=== PATIENT | female | born 1940 | race Caucasian/White ===

== ENCOUNTER 2021-09-13 10:15 | Inpatient (IN) | payer MEDICARE, OTHER ==
[2021-09-13] MEDS ORDERED: Fentanyl 100 MCG/2 ML VIAL ONE (10:49)
[2021-09-13] MEDS ORDERED: Lidocaine 1% (PF) 30 ML VIAL ONE (11:12)
[2021-09-13] MEDS ORDERED: Morphine 4 MG/ML VIAL ONE ×3 (11:12→13:57)
[2021-09-13] MEDS ORDERED: Lidocaine 1% w/Epinephrine 1:100K 20 ML VIAL ONE ×2 (11:25→17:24)
[2021-09-13] MEDS ORDERED: Midazolam HCl 2 mg/2 ml Vial ONE (12:14)
[2021-09-13 13:37] LABS: Hemoglobin 13.8 g/dL (12.0-16.0); Mean Corpuscular HGB CONC 32.4 g/dL (32.0-36.0); Mean Corpuscular Hemoglobin 30.5 pg (27.0-31.0); Mean Platelet Volume 7.2 fL (7.4-10.4); Platelet Count 285 thou/uL (130-400); Red Blood Cell (RBC) Count 4.54 mill/uL (4.20-5.40); White Blood Cell (WBC) Count 20.1 thou/uL (4.8-10.8)
[2021-09-13 13:55] LABS: Band 11 % (5-11); Lymphocytes 3 % (21-51); MDiff Complete? YES; Monocytes 6 % (0-10); Neutrophil 80 % (42-75); Platelet Morphology Comment Appears Adequate; RBC Morphology Normal
[2021-09-13 13:59] LABS: ALT (SGPT) 11 U/L (8-55); AST (SGOT) 17 U/L (5-34); Albumin 4.1 g/dL (3.4-4.8); Alkaline Phosphatase 81 U/L (40-110); Anion Gap 16 mmol/L (10-20); BUN (Urea Nitrogen) 12 mg/dL (9.8-20.1); Bilirubin, Total 0.3 mg/dL (0.2-1.2); Calc. Creatinine Clearance 0 mL/min (70-130); Calcium 9.5 mg/dL (7.8-10.44); Carbon Dioxide 22 mmol/L (23-31); Chloride 103 mmol/L (98-107); Globulin 2.7 g/dL (2.4-3.5); Glucose 175 mg/dL (83-110); Potassium 3.7 mmol/L (3.5-5.1); Protein, Total 6.8 g/dL (5.8-8.1); Sodium 137 mmol/L (136-145)
[2021-09-13] MEDS ORDERED: Dextrose 5% in Water 1,000 ML IV PRN (14:34)
[2021-09-13] MEDS ORDERED: Ondansetron PF 4 MG/2 ML Vial IVP PRN (14:34)
[2021-09-13] MEDS ORDERED: Morphine 4 MG/ML VIAL SLOW IVP PRN (14:34)
[2021-09-13] MEDS ORDERED: hydrALAZINE 20 MG/ML VIAL SLOW IVP PRN (14:34)
[2021-09-13] MEDS ORDERED: Dextrose 50% Abboject 50 ML SYRINGE SLOW IVP PRN (14:34)
[2021-09-13] MEDS ORDERED: traMADol HCl 50 MG TAB PO PRN ×2 (14:37)
[2021-09-13] MEDS ORDERED: Sodium Chloride 0.9% 1,000 ML IV SCH (14:45)
[2021-09-13] MEDS ORDERED: PROPOFOL 20 ML ONE (15:24)
[2021-09-13] MEDS ORDERED: ceFAZolin Sodium/D5W 2 GM in Premix Bag 1 BAG IVPB SCH (15:30)
[2021-09-13 15:36] LABS: SARS-CoV-2 NAA Rapid Test Not Detected (NotDetected)
[2021-09-13 19:34] VITALS: BMI 24.8
[2021-09-13] MEDS: Acetaminophen 500 MG TAB PO SCH ×3 (20:26→23:22)
[2021-09-13] MEDS: Famotidine 20 MG TAB PO SCH (20:26)
[2021-09-13] MEDS: Senokot S 8.6-50 MG TAB PO SCH (20:26)
[2021-09-13] MEDS: Ibuprofen 200 MG TAB PO SCH (20:26)
[2021-09-13] MEDS: Cyclobenzaprine 10 MG TAB PO PRN (22:57)
[2021-09-14] MEDS: Acetaminophen 500 MG TAB PO SCH ×4 (02:47→19:46)
[2021-09-14] MEDS: Ibuprofen 200 MG TAB PO SCH ×3 (05:03→19:46)
[2021-09-14 07:20] LABS: Anion Gap 13 mmol/L (10-20); BUN (Urea Nitrogen) 10 mg/dL (9.8-20.1); Calc. Creatinine Clearance 76 mL/min (70-130); Calcium 8.7 mg/dL (7.8-10.44); Carbon Dioxide 22 mmol/L (23-31); Chloride 102 mmol/L (98-107); Glucose 121 mg/dL (83-110); Magnesium 1.8 mg/dL (1.6-2.6); Phosphorus 2.8 mg/dL (2.3-4.7); Potassium 3.7 mmol/L (3.5-5.1); Sodium 133 mmol/L (136-145)
[2021-09-14 07:25] LABS: Hemoglobin 11.6 g/dL (12.0-16.0); Mean Corpuscular HGB CONC 33.4 g/dL (32.0-36.0); Mean Corpuscular Hemoglobin 30.9 pg (27.0-31.0); Mean Corpuscular Volume 92.7 fL (78.0-98.0); Mean Platelet Volume 7.5 fL (7.4-10.4); Platelet Count 255 thou/uL (130-400); RBC Distribution Width 11.9 % (11.5-14.5); Red Blood Cell (RBC) Count 3.75 mill/uL (4.20-5.40); White Blood Cell (WBC) Count 14.2 thou/uL (4.8-10.8)
[2021-09-14 08:19] LABS: Band 5 % (5-11); Eosinophils 1 % (0-10); Lymphocytes 12 % (21-51); MDiff Complete? YES; Monocytes 12 % (0-10); Neutrophil 69 % (42-75); Platelet Morphology Comment Appears Adequate; Reactive Lymphocytes 1 % (0-10)
[2021-09-14] MEDS ORDERED: traMADol HCl 50 MG TAB PO PRN (08:29)
[2021-09-14] MEDS ORDERED: Potassium Phosphate 30 MMOL in Sodium Chloride 0.9% 250 ML 250 ML IVPB SCH (09:00)
[2021-09-14] MEDS ORDERED: Magnesium 2 GM/50 ML 2 GM in Premix Bag 1 BAG IVPB SCH (09:00)
[2021-09-14] MEDS: Senokot S 8.6-50 MG TAB PO SCH ×2 (10:27→19:46)
[2021-09-14] MEDS: Famotidine 20 MG TAB PO SCH ×2 (10:27→19:47)
[2021-09-14] MEDS: Polyethylene Glycol 3350 17 GM Packet PO SCH (10:27)
[2021-09-14] MEDS ORDERED: ceFAZolin 2 GM/DEX 5% 100 ML BAG ONE (11:25)
[2021-09-14] MEDS ORDERED: Midazolam HCl 2 mg/2 ml Vial ONE (11:37)
[2021-09-14] MEDS ORDERED: Fentanyl 100 MCG/2 ML VIAL ONE ×4 (11:39→14:18)
[2021-09-14] MEDS: traMADol HCl 50 MG TAB PO SCH ×3 (11:46→22:59)
[2021-09-14] MEDS ORDERED: Bupivacaine HCl 0.5%/Epinephrine 1:200,000/PF 30 ml Vial ONE (11:50)
[2021-09-14] MEDS ORDERED: Lidocaine 1% PF 5 ML VIAL ONE (12:07)
[2021-09-14] MEDS ORDERED: Ondansetron PF 4 MG/2 ML Vial ONE (12:07)
[2021-09-14] MEDS ORDERED: PROPOFOL 200 MG/20 ML VIAL ONE (12:07)
[2021-09-14] MEDS ORDERED: Dexamethasone 20 MG/5 ML VIAL ONE (12:07)
[2021-09-14] MEDS ORDERED: Promethazine HCl 25 MG/ML VIAL IM PRN (13:34)
[2021-09-14] MEDS ORDERED: HYDROmorphone 2 MG/ML VIAL SLOW IVP PRN (13:34)
[2021-09-14] MEDS ORDERED: Ondansetron HCl/PF 4 MG/2 ML Vial IVP PRN (13:34)
[2021-09-14] MEDS ORDERED: Promethazine HCl 25 MG/ML VIAL IVPB PRN (13:34)
[2021-09-14] MEDS ORDERED: PROPOFOL 20 ML ONE (13:37)
[2021-09-14] MEDS: CEFAZOLIN 2 GM in Sodium Chloride 0.9% 100 ML IVPB SCH (19:46)
[2021-09-14] MEDS: Cyclobenzaprine 10 MG TAB PO PRN (19:46)
[2021-09-14] MEDS ORDERED: Haloperidol Lactate 5 MG/ML VIAL IM SCH (22:15)
[2021-09-15] MEDS: Acetaminophen 500 MG TAB PO SCH ×4 (02:58→20:33)
[2021-09-15] MEDS: CEFAZOLIN 2 GM in Sodium Chloride 0.9% 100 ML IVPB SCH (03:00)
[2021-09-15] MEDS: traMADol HCl 50 MG TAB PO SCH ×3 (06:06→18:41)
[2021-09-15] MEDS: Ibuprofen 200 MG TAB PO SCH ×3 (06:06→23:28)
[2021-09-15] MEDS ORDERED: Magnesium 2 GM/50 ML 2 GM in Premix Bag 1 BAG IVPB SCH (08:00)
[2021-09-15] MEDS ORDERED: PHOS-NAK 1 PKT PACK PO SCH (08:00)
[2021-09-15] MEDS: Famotidine 20 MG TAB PO SCH ×2 (09:54→20:34)
[2021-09-15] MEDS: Polyethylene Glycol 3350 17 GM Packet PO SCH (09:54)
[2021-09-15] MEDS: Lisinopril 20 MG TAB PO SCH (09:54)
[2021-09-15] MEDS: Aspirin 81 mg Enteric Coated Tablet PO SCH ×2 (09:54→20:34)
[2021-09-15] MEDS: Senokot S 8.6-50 MG TAB PO SCH ×2 (10:09→21:42)
[2021-09-16] MEDS: traMADol HCl 50 MG TAB PO SCH ×4 (03:16→17:00)
[2021-09-16] MEDS: Acetaminophen 500 MG TAB PO SCH ×4 (03:16→20:43)
[2021-09-16 04:44] LABS: #Basophils 0.1 thou/uL (0.0-0.2); #Eosinphils 0.4 thou/uL (0.0-0.7); #Lymphocytes 1.7 thou/uL (1.20-3.40); #Neutrophils 11.7 thou/uL (1.40-6.50); %Basophils 0.6 % (0.0-1.0); %Eosinophils 2.3 % (0.0-10.0); %Lymphocytes 10.9 % (21.0-51.0); %Monocytes 12.4 % (0.0-10.0); %Neutrophils 73.8 % (42.0-75.0); Mean Corpuscular HGB CONC 33.8 g/dL (32.0-36.0); Mean Corpuscular Volume 94.7 fL (78.0-98.0); Mean Platelet Volume 7.3 fL (7.4-10.4); Platelet Count 249 thou/uL (130-400); RBC Distribution Width 12.2 % (11.5-14.5); Red Blood Cell (RBC) Count 3.43 mill/uL (4.20-5.40); White Blood Cell (WBC) Count 15.8 thou/uL (4.8-10.8)
[2021-09-16 05:26] LABS: Anion Gap 13 mmol/L (10-20); BUN (Urea Nitrogen) 15 mg/dL (9.8-20.1); Calc. Creatinine Clearance 58 mL/min (70-130); Calcium 8.8 mg/dL (7.8-10.44); Carbon Dioxide 24 mmol/L (23-31); Chloride 104 mmol/L (98-107); Glucose 113 mg/dL (83-110); Magnesium 2.4 mg/dL (1.6-2.6); Phosphorus 3.4 mg/dL (2.3-4.7); Potassium 4.3 mmol/L (3.5-5.1); Sodium 137 mmol/L (136-145)
[2021-09-16] MEDS: Ibuprofen 200 MG TAB PO SCH ×3 (06:25→22:51)
[2021-09-16] MEDS: Senokot S 8.6-50 MG TAB PO SCH ×2 (09:26→20:43)
[2021-09-16] MEDS: Famotidine 20 MG TAB PO SCH ×2 (09:26→20:43)
[2021-09-16] MEDS: Aspirin 81 mg Enteric Coated Tablet PO SCH ×2 (09:26→20:43)
[2021-09-16] MEDS: Lisinopril 20 MG TAB PO SCH (09:27)
[2021-09-16] MEDS: Polyethylene Glycol 3350 17 GM Packet PO SCH (09:30)
[2021-09-16] MEDS ORDERED: FLU VACC QS2021-22(65YR UP)/PF 240 MCG/0.7 ML SYRINGE IM ONE (19:45)
[2021-09-17] MEDS: traMADol HCl 50 MG TAB PO SCH ×5 (01:08→23:45)
[2021-09-17] MEDS ORDERED: Haloperidol Lactate 5 MG/ML VIAL IM SCH (01:45)
[2021-09-17] MEDS: Acetaminophen 500 MG TAB PO SCH ×4 (03:10→20:58)
[2021-09-17] MEDS: Ibuprofen 200 MG TAB PO SCH ×3 (05:19→21:59)
[2021-09-17] MEDS: Senokot S 8.6-50 MG TAB PO SCH ×2 (09:37→20:58)
[2021-09-17] MEDS: Aspirin 81 mg Enteric Coated Tablet PO SCH ×2 (09:37→20:58)
[2021-09-17] MEDS: Lisinopril 20 MG TAB PO SCH (09:37)
[2021-09-17] MEDS: Famotidine 20 MG TAB PO SCH ×2 (09:37→20:58)
[2021-09-17] MEDS: Polyethylene Glycol 3350 17 GM Packet PO SCH (09:38)
[2021-09-17 20:15] LABS: Amphetamine Not Detected (NotDetected); Barbiturates Screen Not Detected (NotDetected); Benzodiazepine Screen Not Detected (NotDetected); Cocaine Metabolite Screen Not Detected (NotDetected); Methadone Not Detected (NotDetected); Methamphetamine Not Detected (NotDetected); Opiate Screen Detected (NotDetected); Oxycodone Screen Not Detected (NotDetected); Phencyclidine (PCP) Not Detected (NotDetected); THC/Cannabinoid Screen Not Detected (NotDetected); Tricyclic Screen Not Detected (NotDetected)
[2021-09-18] MEDS: Acetaminophen 500 MG TAB PO SCH ×4 (03:00→19:59)
[2021-09-18 05:47] LABS: #Basophils 0.1 thou/uL (0.0-0.2); #Eosinphils 0.7 thou/uL (0.0-0.7); #Lymphocytes 2.3 thou/uL (1.20-3.40); #Monocytes 1.3 thou/uL (0.11-0.59); #Neutrophils 6.6 thou/uL (1.40-6.50); %Basophils 0.8 % (0.0-1.0); %Eosinophils 6.3 % (0.0-10.0); %Lymphocytes 21.2 % (21.0-51.0); %Monocytes 11.9 % (0.0-10.0); %Neutrophils 59.8 % (42.0-75.0); Hemoglobin 10.7 g/dL (12.0-16.0); Mean Corpuscular HGB CONC 33.6 g/dL (32.0-36.0); Mean Corpuscular Hemoglobin 32.1 pg (27.0-31.0); Mean Corpuscular Volume 95.4 fL (78.0-98.0); Mean Platelet Volume 6.6 fL (7.4-10.4); Platelet Count 257 thou/uL (130-400); RBC Distribution Width 12.1 % (11.5-14.5); Red Blood Cell (RBC) Count 3.33 mill/uL (4.20-5.40)
[2021-09-18 05:58] LABS: Anion Gap 15 mmol/L (10-20); BUN (Urea Nitrogen) 18 mg/dL (9.8-20.1); Calc. Creatinine Clearance 77 mL/min (70-130); Calcium 8.5 mg/dL (7.8-10.44); Carbon Dioxide 22 mmol/L (23-31); Chloride 106 mmol/L (98-107); Glucose 79 mg/dL (83-110); Magnesium 1.9 mg/dL (1.6-2.6); Potassium 3.5 mmol/L (3.5-5.1); Sodium 139 mmol/L (136-145)
[2021-09-18] MEDS: Ibuprofen 200 MG TAB PO SCH ×3 (08:17→19:59)
[2021-09-18] MEDS: traMADol HCl 50 MG TAB PO SCH ×4 (08:17→23:09)
[2021-09-18] MEDS ORDERED: traMADol HCl 50 MG TAB PO PRN (08:30)
[2021-09-18] MEDS: Famotidine 20 MG TAB PO SCH ×2 (09:37→19:59)
[2021-09-18] MEDS: Senokot S 8.6-50 MG TAB PO SCH ×2 (09:37→19:57)
[2021-09-18] MEDS: Lisinopril 20 MG TAB PO SCH (09:37)
[2021-09-18] MEDS: Aspirin 81 mg Enteric Coated Tablet PO SCH ×2 (09:37→19:59)
[2021-09-18] MEDS: Polyethylene Glycol 3350 17 GM Packet PO SCH (09:39)
[2021-09-18 10:58] LABS: Bilirubin Negative (Negative); Blood, Urine Negative (Negative); Clarity Clear (Clear); Glucose, Urine (Dipstick) Normal (Negative); Ketone, Urine Trace mg/dL (Negative); Leukocyte Negative Leu/uL (Negative); Nitrite Negative (Negative); Protein, Urine (Dipstick) Negative (Neg-Trace); Specific Gravity, Urine 1.013 (1.002-1.036); Urobilinogen Normal mg/dL (Less than 2); pH, Urine 5.5 (5.0-9.0)
[2021-09-19] MEDS: Acetaminophen 500 MG TAB PO SCH ×2 (03:07→08:59)
[2021-09-19] MEDS: Ibuprofen 200 MG TAB PO SCH (05:10)
[2021-09-19] MEDS: traMADol HCl 50 MG TAB PO SCH ×2 (05:10→11:03)
[2021-09-19] MEDS: Famotidine 20 MG TAB PO SCH (08:59)
[2021-09-19] MEDS: Aspirin 81 mg Enteric Coated Tablet PO SCH (08:59)
[2021-09-19] MEDS: Lisinopril 20 MG TAB PO SCH (09:00)
[2021-09-19] MEDS: Polyethylene Glycol 3350 17 GM Packet PO SCH (09:01)
[2021-09-19] MEDS: Senokot S 8.6-50 MG TAB PO SCH (09:01)
[2021-09-19] MEDS ORDERED: Lisinopril 10 MG TAB PO SCH (09:30)
[2021-09-19 12:31] VITALS: BP 169/88; TEMP 98.7
[2021-09-20] MEDS ORDERED: Lisinopril 20 MG TAB PO SCH (09:00)
== END 2021-09-19 14:13 | DRG 516 ==
LOC: ERS 10:15 → SURG B 13:57
PROVIDERS: ADMIT Surgery; ATTEND Surgery
PROC: 0RSKXZZ Reposition Left Shoulder Joint, External Approach (ICD-10-PCS; 2021-09-13)
PROC: 0QSF04Z Reposition Left Patella with Internal Fixation Device, Open Approach (ICD-10-PCS; principal; 2021-09-14)
PROC: 3E0T3BZ Introduction of Anesthetic Agent into Peripheral Nerves and Plexi, Percutaneous Approach (ICD-10-PCS; 2021-09-14)
PROC: 2W3CX1Z Immobilization of Right Lower Arm using Splint (ICD-10-PCS; 2021-09-15)
DX: S82.032A Displaced transverse fracture of left patella, initial encounter for closed fracture (principal); S42.202A Unspecified fracture of upper end of left humerus, initial encounter for closed fracture; S52.391A Other fracture of shaft of radius, right arm, initial encounter for closed fracture; F05 Delirium due to known physiological condition; W01.198A Fall on same level from slipping, tripping and stumbling with subsequent striking against other object, initial encounter; Z20.822 Contact with and (suspected) exposure to COVID-19; I10 Essential (primary) hypertension; M25.462 Effusion, left knee; Y93.89 Activity, other specified; Y92.015 Private garage of single-family (private) house as the place of occurrence of the external cause; Z90.49 Acquired absence of other specified parts of digestive tract; Z87.891 Personal history of nicotine dependence; W07.XXXA Fall from chair, initial encounter; Y92.230 Patient room in hospital as the place of occurrence of the external cause
CPT/HCPCS: 23650; 36415; 71045; 76000; 80048; 80053; 80306; 81003; 83735; 84100; 85025; 86850; 86900; 86901; 87086; 90471; 90662; 93005; 96372; 96374; 96375; 96376; 99152; G0008; G0390; J0360; J0690; J1100; J1630; J2001; J2250; J2270; J2405; J2704; J3010; J3475; J3490; J7050; U0002

== ENCOUNTER 2021-09-20 02:10 | Emergency (ER) | payer MEDICARE | END 2021-09-20 05:45 | disposition home or self-care (01) | LOC: ERS 04:10 | DX: S40.022A Contusion of left upper arm, initial encounter (principal); I10 Essential (primary) hypertension; Z87.891 Personal history of nicotine dependence; W19.XXXA Unspecified fall, initial encounter; Y92.129 Unspecified place in nursing home as the place of occurrence of the external cause | CPT/HCPCS: 51702; 70450 ==

== ENCOUNTER 2023-03-26 08:10 | Outpatient (CLI) | payer OTHER | END 2023-03-26 08:11 | disposition home or self-care (01) | LOC: TBSIIMAG 08:10 | PROVIDERS: ATTEND Psychiatry & Neurology Neurology | DX: R41.3 Other amnesia (principal) | CPT/HCPCS: 70551 ==

== ENCOUNTER 2023-08-01 19:10 | Emergency (ER) | payer OTHER ==
[2023-08-01] MEDS ORDERED: Triple Antibiotic Oint 1 GM Packet ONE (20:20)
== END 2023-08-01 20:28 | disposition home or self-care (01) ==
LOC: ERS 19:10
DX: S70.01XA Contusion of right hip, initial encounter (principal); S51.011A Laceration without foreign body of right elbow, initial encounter; I10 Essential (primary) hypertension; W18.30XA Fall on same level, unspecified, initial encounter